=== PATIENT | female | born 1990 | race African-American/Black ===

== ENCOUNTER 2020-01-02 10:29 | Emergency (ER) | payer MEDICAID ==
[2020-01-02] MEDS ORDERED: Fluorescein Opthalmic Strip ONE (11:36)
[2020-01-02] MEDS ORDERED: Proparacaine 0.5% Opth 15 ML BOT ONE (11:36)
== END 2020-01-02 12:41 | disposition home or self-care (01) ==
LOC: ERS 10:29
DX: S05.01XA Injury of conjunctiva and corneal abrasion without foreign body, right eye, initial encounter (principal); X58.XXXA Exposure to other specified factors, initial encounter
CPT/HCPCS: 99283